=== PATIENT | male | born 1995 | race Native Hawaiian/Other Pacific Islander ===

== ENCOUNTER 2018-02-17 19:59 | Emergency (ER) | payer BC ==
[~2018-02-17] VITALS: Ht 182.9 cm; Wt 74.8 kg
[~2018-02-17 19:59] MED LIST: CLARITIN10 M1 PO; OMEP20CA PO; STRATTERA25 MG OR
[2018-02-17 21:15] VITALS: BP 130/70; TEMP 98
== END 2018-02-17 21:15 | disposition home or self-care (01) ==
LOC: ED 19:59
DX: S61.012A Laceration without foreign body of left thumb without damage to nail, initial encounter (principal); W27.8XXA Contact with other nonpowered hand tool, initial encounter
CPT/HCPCS: 99282